=== PATIENT | female | born 1965 | race Two or more races ===

== ENCOUNTER 2016-04-09 14:47 | Emergency (ER) | payer SELFPAY ==
[~2016-04-09] VITALS: Ht 157.5 cm; Wt 89.8 kg
[~2016-04-09 14:47] MED LIST: CIPROFLOXACIN500 M2 ORAL; DIPHENHYDRAMINE25 M1 ORAL
[2016-04-09] MEDS ORDERED: ENALAPRIL MALEA10 MG ORAL (14:57)
[2016-04-09 15:13] VITALS: BP 141/82
[2016-04-09] MEDS ORDERED: Dicyclomine HCl 10mg/5ml oral soln ORAL ONE (15:30)
[2016-04-09] MEDS ORDERED: Lidocaine 2% Visc 15ml soln ORAL ONE (15:30)
[2016-04-09] MEDS ORDERED: BENTYL10 MG ORAL (15:31)
[2016-04-09] MEDS ORDERED: COLACE100 MG ORAL (15:31)
[2016-04-09 15:42] VITALS: BP 138/77
--- NOTE | 2016-04-09 23:41 | Emergency Room Report ---
History of Present Illness General Chief Complaint: Abdominal Pain Source: Patient Present Illness HPI Patient is a 51-year-old female presented after increased epigastric pain. The patient gradual onset of symptoms. Patient was noted to have intermittent abdominal cramping. The pain did not radiate. Patient prior history of gallbladder removal. Patient had been . She had not been having any fever. The patient noticed increased pain with Valsalva. Patient stated that she had a lump in her upper abdomen which was worse when she would sit up. She denied black or bloody stools and she denied hematemesis. Allergies: Coded Allergies: No Known Allergies (Unverified , 11/08/14) Patient History Past Medical History: see triage record Last Menstrual Period: 03/19/16 Reviewed Nursing Documentation: PMH: Agreed, PSxH: Agreed Nursing Documentation-PMH Hx Hypertension: Yes Hx Gastrointestinal Problems: No - GB removal in 2013, C/S in 1994 Review of Systems All Other Systems: negative except mentioned in HPI Physical Exam Vital Signs Date Time Temp Pulse Resp B/P Pulse Ox O2 Delivery O2 Flow Rate FiO2 04/09/16 14:51 99.1 131 18 141/82 97 Room Air Sp02 EP Interpretation: reviewed, normal General Appearance: normal inspection, well appearing, no apparent distress, alert, GCS 15, non-toxic Head: atraumatic ENT: normal ENT inspection, hearing grossly normal, normal voice Neck: normal inspection, full range of motion, supple, no bony tend Respiratory: normal inspection, lungs clear, normal breath sounds, no respiratory distress, no retraction, no wheezing Cardiovascular #1: regular rate, rhythm, no edema Gastrointestinal: normal inspection, normal bowel sounds, non tender, soft, no guarding, no hernia, hernia - easily reducible Genitourinary: no CVA tenderness Musculoskeletal: normal inspection, back normal, normal range of motion Neurologic: normal inspection, alert, oriented x3, responsive, 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 Differential diagnoses included ischemic bowel, appendicitis, perforated viscus, abdominal aortic aneurysm, inferior myocardial infarction, viral gastroenteritis Patient's benign exam and does not appear to require any further imaging or laboratory testing at this time. The patient does not appear to have an incarcerated restrained with a hernia as this is easily reducible. The patient is advised followup with her surgeon for further evaluation of her hernia and possible repair. The patient was advised to return for increased vomiting fever lateralized pain or other concerns Last Vital Signs Date Time Temp Pulse Resp B/P Pulse Ox O2 Delivery O2 Flow Rate FiO2 04/09/16 15:42 99.1 102 20 138/77 99 Room Air Status: improved Disposition: HOME, SELF-CARE Condition: Stable Scripts Dicyclomine Hcl* (BENTYL*) 10 Mg Capsule 10 MG ORAL FOUR TIMES A DAY, #14 CAP Prov: Jose Luciano 04/09/16 Docusate Sodium* (COLACE*) 100 Mg Capsule 100 MG ORAL TWICE A DAY, #30 CAP Prov: Jose Luciano 04/09/16 Referrals: NOT CHOSEN IPA/,REFERRING (PCP) Patient Instructions: Ventral Hernia Jose Luciano Apr 09, 2016 23:41
== END 2016-04-09 15:42 | disposition home or self-care (01) ==
LOC: EMR 15:40
DX: K43.9 Ventral hernia without obstruction or gangrene (principal); I10 Essential (primary) hypertension; Z90.49 Acquired absence of other specified parts of digestive tract
CPT/HCPCS: 99284